=== PATIENT | female | born 1970 | race Caucasian/White ===

== ENCOUNTER 2017-01-30 08:25 | Day surgery (SDC) | payer OTHER ==
[~2017-01-30] VITALS: Ht 175.3 cm; Wt 36.4 kg
[2017-01-30] VITALS (8 sets, daily range): BP systolic 106–120; BP diastolic 41–79; PULSE 13–99; RESP 11–21; O2SAT 97–100
[~2017-01-30 08:25] MED LIST: Lactated Ringer's 1,000 ML IV SCH
[2017-01-30] MEDS ORDERED: Dexamethasone 4 mg/mL Inj ONE (08:26)
[2017-01-30] MEDS ORDERED: Ondansetron 2 mg/mL 2 mL Inj ONE (08:26)
[2017-01-30] MEDS ORDERED: MetoCLOpramide 5 mg/mL 2 mL Inj ONE (08:26)
[2017-01-30] MEDS ORDERED: fentaNYL-PF 50 mCg/mL 2 mL Inj ONE (08:26)
[2017-01-30] MEDS ORDERED: Propofol 10,000 mCg/mL 20 mL Inj ONE (08:26)
[2017-01-30] MEDS ORDERED: Lactated Ringer's 1,000 ML IV ONE (10:22)
[2017-01-30] MEDS ORDERED: Lactated Ringer's 500 ML IV PRN (10:30)
[2017-01-30] MEDS ORDERED: Atropine 0.4 mg/mL Inj IVPUSH PRN (10:30)
[2017-01-30] MEDS ORDERED: EPHEDrine Sulfate 50 mg/mL Inj IVPUSH PRN (10:30)
[2017-01-30] MEDS ORDERED: Lactated Ringer's 1,000 ML IV SCH (10:30)
[2017-01-30] MEDS ORDERED: Phenylephrine 10,000 mCg/mL Inj IVPUSH PRN (10:30)
[2017-01-30] MEDS ORDERED: Ondansetron 2 mg/mL 2 mL Inj IVPUSH PRN (10:30)
[2017-01-30] MEDS ORDERED: Labetalol 5 mg/mL 4 mL Inj IV PRN (10:30)
[2017-01-30] MEDS ORDERED: fentaNYL-PF 50 mCg/mL 2 mL Inj IVPUSH PRN (10:30)
[2017-01-30] MEDS ORDERED: hydrALAZINE 20 mg/mL Inj IVPUSH PRN (10:30)
[2017-01-30] MEDS ORDERED: MetoCLOpramide 5 mg/mL 2 mL Inj IVPUSH PRN (10:30)
--- NOTE | 2017-01-30 10:30 | PCM.HPANE ---
Patient Data Surgeon Admitting Provider: Attending Provider:Sherif Connelly MD Primary Care Physician:Amy Glez MD Other Provider: Reason for Visit Left Upper Quadrant Intramuscular Abd Lipoma Ht/WT & BMI Height (Feet): 5 Height (Inches): 9 Weight (Kilograms): 36.4 Body Mass Index 11.00 Allergies Coded Allergies: Penicillins (Verified Allergy, Severe, hives, 01/28/17) oxycodone (Verified Allergy, Severe, hallucinates, 01/28/17) Past Anesthesia History Anesthesia History: Denies:: Abnormal Airway, Anesthesia Reactions, Difficult Intubation, Fam Anesthesia Reaction Diabetes History Hx Diabetes?: No MRSA MRSA: No Medications Hypertension Medication: No Home Meds Incl Beta Prisca: No Discontinued Reported Medications Levothyroxine-Expunged Drug, Do Not Renew! (Synthroid-Expunged Drug, Do Not Renew!)100 Mcg [id number] Mcg PO DAILY Ref 0 10/25/09 History HEENT History: Positive for:: Hearing Problem TMJ (wears nightguard) Denies:: Abnormal Airway Cataracts Difficult Intubation Dysphagia Glaucoma Sinus Problem Cardiovascular History: Denies:: AICD Abdominal Aortic Aneurism Atrial Fibrillation Cardiac Surgery Chest Pain Congestive Heart Failure Coronary Artery Disease Edema Heart Murmur Hypertension Irregular Heartbeat Pacemaker Peripheral Vascular Hx of Respiratory Problem?: No Respiratory History: Denies:: Asthma COPD Emphysema Oxygen Administration Pneumonia Tuberculosis Use of C-PAP Machine Use of Inhalers / NEBS Hx Neurologic Problems?: No Neurological History: Denies:: Alzheimer's Disease CVA Dementia Dizziness Headaches Multiple Sclerosis Parkinson's Disease Seizures TIA Hx of GI Problems?: Yes Gastrointestinal History: Denies:: Cirrhosis Gall Bladder Disease Gastroesphageal Reflux Gastrointestinal Bleeding Heartburn Hepatitis Hiatal Hernia Liver Disease Rectal Bleeding Other GI Pertinent History: muscular abdominal mass left upper quadrant current admission problem Hx of Problems?: No Genitourinary History: Denies:: Kidney Stones Urinary Tract Infection Female Hx: Denies:: Currently (hysterectomy) Problems with Breasts? Skin History: Denies:: History Skin Disorders? Pressure Ulcers Hx Musculoskeletal Problems?: Yes Musculoskeletal History: Positive for:: Back Injury (chronic low back pain) Osteoarthritis Denies:: Fibromyalgia Joint Replacement Musculoskeletal Trauma Myasthenia Gravis Rheumatoid Arthritis Systemic Lupus Hx of Psycho/Social Problems?: No Psycho Social History: Denies:: Anxiety Hx Depression Hx Surgeries?: Yes (hysterectomy,appe, bladder sling) Hx Any Other Health Problems?: Yes Other History: Denies:: Cancer Thyroid Disease (prior medication for, not currently) History Blood Transfusions: Positive for:: Accept Blood Products? Denies:: Blood Transfusions Hx Diabetes: No Hx Alcohol Use: YesAlcoholic Drinks Per Day: 2-3 weeklyHx Substance Use: No Have You Smoked inLast 12 mo: Yes Stop/Bang S-Snoring: Do You Snore Loudly: No T-Tired: feel tired, fatigued: No O-Obsered: Observed not breath: Yes P-Blood Pressure: treated: No B- Body Mass Index > 35 kg/m2: No A- Age over 50: No N- Neck Large Circumference: No G- Gender Male: No DENIA Total Score: 1 Risk Assessment Category Category 1A: Patient has history of documented sleep apnea, and HAS NOT received any narcotic, sedative or anesthesia administration during this stay. Category 1B: Patient has history of documented sleep apnea, and HAS received any narcotic , sedative or anesthesia administration during this stay Category 2: Patient has SUSPECTED Obstructive Sleep Apnea, and HAS received any narcotic , sedative or anesthesia administration during this stay. Category 3: Patient has SUSPECTED Obstructive Sleep Apnea and HAS NOT received narcotic, sedative or anesthesia administration during this stay. Category 4: Outpatient in Procedural Areas with known sleep apnea or who screen positive for High Risk via the STOP/BANG questionnaire. Exam Exam Vital Signs Vital Signs Date Time Temp Pulse Resp B/P Pulse Ox O2 Delivery O2 Flow Rate FiO2 01/30/17 08:46 36.4 68 16 106/70 100 Room Air General Appearance: Alert, Oriented X3, Cooperative, No Acute Distress HEENT/AIRWAY: MP 2, Neck Movement (FROM), Mouth Opening (3 FBMO) Lungs: Clear to Auscultation, Normal Air Movement Heart: Exam Unremarkable, Regular Rate/Rhythm, No Murmurs/Rubs/Gallops Plan Impression Patient chart reviewed, patient interviewed and anesthestic plan with risks, benefits, and alternatives discussed, and informed consent obtained. NPO Status: 3/2 ASA Physical Status: ASA2 Mod Systemic Disease Anesthetic Plan: GA Bene/Risks/Altern/Consents: Yes HP Complete Prior to Induction: Yes Jesse Pinedo MD Jan 30, 2017 08:51
[2017-01-30] MEDS ORDERED: Bupivacaine-MPF 0.25%/EPI 30 mL Inj INJ ONE (10:34)
[2017-01-30] MEDS ORDERED: HYDROcodone-APAP 5-325 mg Tablet PO PRN (11:05)
--- NOTE | 2017-01-30 11:46 | OP ---
[address] [address] OPERATIVE REPORT PATIENT: VERONIKA TRENT : 1970 MR#: [id number] ADMIT: 01/30/2017 JOB ID: [id number] DATE OF SURGERY: 01/30/2017 ANESTHESIA: General. PREOPERATIVE DIAGNOSIS(ES): Left upper quadrant intramuscular mass. POSTOPERATIVE DIAGNOSIS(ES): Left upper quadrant intramuscular lipoma. OPERATION: Excision of left upper quadrant intramuscular lipoma. SURGEON: Sherif Connelly MD CRAFT RECRUITER: Wilver Ruiz PA-C (the anesthesiologists' assistant was required for the safe and timely completion of the case). COMPLICATIONS: None. ESTIMATED BLOOD LOSS: None. CONDITION: Satisfactory. SPECIMENS: Left upper quadrant lipoma measuring 7.5 x 5.5 x 2.5 cm. FINDINGS: There was a lipoma deep to the external oblique muscle which was removed completely. INDICATIONS AND SIGNIFICANT HISTORY: The patient is a 46-year-old female who had noticed a left upper quadrant mass. This was evaluated by her PCP with an MRI which was read as likely lipoma but possibly sarcoma. This showed that it was in the intramuscular layer. She was referred to me and therefore I recommended removing this in the operating room. OPERATIVE TECHNIQUE: The patient was taken to the operating room and placed in supine position. General anesthesia was administered and perioperative antibiotics were given. The abdomen was prepped and draped in standard surgical fashion. A procedural pause was performed. I made a small transverse incision over the palpable mass. Dissection was carried down through the skin and subcutaneous tissue. The anterior fascia was opened and the external oblique divided with electrocautery. The lipoma was then encountered and circumferentially dissected free and removed completely intact. The surgical bed was inspected and found to be completely hemostatic. The fascia was then closed with running 2-0 PDS suture. Local anesthetic was injected. The skin was closed using 4-0 Monocryl. The entire procedure was well tolerated, without complication.
--- NOTE | 2017-01-30 13:32 | PCM.ANEP2 ---
Post Anesthesia Evaluation ASA/CMS Post Anesthesia VS in Patient's Normal Range?: Yes Resp Stable; Airway Patent?: Yes CV Function & Hydration Stable: Yes Mental Status Recovered?: Yes Pain control Satisfactory?: Yes N/V Control Satisfactory?: Yes Jesse Pinedo MD Jan 30, 2017 13:32
--- NOTE | 2017-01-30 13:32 | PCM.ANEP1 ---
Post Anesthesia Phase 1 PACU Phase 1 Assessment Vital Signs Vital Signs Date Time Temp Pulse Resp B/P Pulse Ox O2 Delivery O2 Flow Rate FiO2 01/30/17 12:05 13 16 109/75 100 Room Air 01/30/17 11:32 36.1 81 16 113/79 97 Room Air 01/30/17 11:30 87 17 120/76 98 Room Air 01/30/17 11:25 36.2 77 12 117/68 98 Room Air 01/30/17 11:20 86 21 111/69 100 Simple Mask 10 01/30/17 11:15 85 113/41 98 Simple Mask 10 01/30/17 11:10 36.3 99 11 120/74 98 Simple Mask 10 01/30/17 08:46 36.4 68 16 106/70 100 Room Air Anesthetic Administered: GA Level of Alertness: Awake, talking SPICER's with Equal Strength: Yes Pain: No Nausea or Vomiting: No Oxygen Delivery: Room Air Lungs: Clear to Auscultation, Normal Air Movement Dermatome Level: Full Sensation Jesse Pinedo MD Jan 30, 2017 13:32
--- NOTE | 2017-01-31 11:34 | PATH ---
SURGICAL PATHOLOGY Attending Physician:Sherif Connelly MD CASE STATUS: Signed Out PATIENT NAME: VERONIKA TRENT PID: [id number] : 1970 DATE COLLECTED:01/30/2017 15:58 SPECIMEN: Soft Tissue, Lipoma CLINICAL HISTORY: LEFT UPPER QUADRANT INTRAMUSCULAR ABDOMINAL MASS 1). INTRAMUSCULAR LIPOMA FINAL DIAGNOSIS: 1.LEFT UPPER QUADRANT INTRAMUSCULAR ABDOMINAL MASS: LIPOMA. ICD10 CODE D17.9 GROSS DESCRIPTION: The specimen is received in formalin, labeled with the patient's name, sublabeled as intramuscular lipoma and consists of a fatty membranous mass (6.3 x 5.2 x 3.8 cm). The exterior surface is smooth, shiny and flat. The cut surface is yellow-orange, lobular and homogenous. Ink code: blue-resection margin. Section code: (A, B) fatty mass, disability representative. 01/30/17 JM MICRO DESCRIPTION: See diagnosis. ICD-9 CODES: CPT CODES: 1: 27039 Electronically Signed Out Lorraine Pop MD [facility] [address], [place] [address] Technical component performed at [facility], [address] [place] [address] Ave[address], [place], [address]
== END 2017-01-30 23:59 | disposition home or self-care (01) ==
LOC: SAS 08:25
PROVIDERS: ATTEND General Practice
DX: D17.9 Benign lipomatous neoplasm, unspecified (principal)
CPT/HCPCS: 21933; J1100; J2405; J2765; J3010; J7120